=== PATIENT | female | born 1990 | race Caucasian/White ===

== ENCOUNTER 2016-12-21 09:57 | Emergency (ER) | payer OTHER ==
[~2016-12-21] VITALS: Ht 165.1 cm; Wt 57.7 kg
[~2016-12-21 09:57] MED LIST: MOTRIN 800800 MG/TAB PO
[2016-12-21 10:00] VITALS: BP 130/73; PULSE 84; TEMP 98.3
[2016-12-21] MEDS ORDERED: PRENATAL 191 TAB PO (10:05)
== END 2016-12-21 11:38 | disposition home or self-care (01) ==
LOC: COL.ER 09:57
DX: O20.9 Hemorrhage in early pregnancy, unspecified (principal); Z3A.19 19 weeks gestation of pregnancy; O26.892 Other specified pregnancy related conditions, second trimester; Z67.41 Type O blood, Rh negative
CPT/HCPCS: J2791

== ENCOUNTER 2017-05-16 07:32 | Inpatient (IN) | payer OTHER ==
[~2017-05-16] VITALS: Ht 165.1 cm; Wt 67.7 kg
[2017-05-16] VITALS (23 sets, daily range): BP systolic 96–144; BP diastolic 44–77; PULSE 87–150; TEMP 98.4–99.1
[~2017-05-16 07:32] MED LIST changes: +PRENATAL 191 TAB PO
[2017-05-16] MEDS ORDERED: SLOW FE142 MG PO (08:07)
[2017-05-16 09:54] LABS: BASO # 0.1 (0.0-0.2); BASO % 0.4 % (0.0-2.0); EOS # 0.1 (0.0-0.7); EOS % 0.7 % (0-4.0); GRAN # 10.2 (1.4-6.5); GRAN % 73.2 % (42.2-75.2); LYMPH # 2.4 (1.2-3.4); LYMPH % 17.5 % (20.0-51.0); MEAN CELL VOLUME 101 fl (80.0-100.0); MEAN CORPUSCULAR HGB CONC 34 g/dl (33.0-37.0); MEAN PLATELET VOLUME 9.5 fl (7.4-10.4); MONO % 7.3 % (1.7-9.3); PLATELET COUNT 318 K/mm3 (130-400); WHITE BLOOD COUNT 13.9 K/mm3 (4.8-10.8)
[2017-05-16 09:56] LABS: HEMATOCRIT 31.4 % (37.0-47.0); HEMOGLOBIN 10.8 g/dl (12.5-16.0); MEAN CORPUSCULAR HEMOGLOBIN 35 pg (27.0-31.0)
[2017-05-17 01:00] VITALS: BP 101/66; PULSE 94; TEMP 98.2
[2017-05-17 04:10] VITALS: BP 99/52; PULSE 92; TEMP 97.6
[2017-05-17 06:36] VITALS: BP 96/46; PULSE 83; TEMP 98.2
[2017-05-17] MEDS ORDERED: IBU600 MG PO (10:17)
== END 2017-05-17 14:40 | disposition home or self-care (01) | DRG 775 ==
LOC: LDRO 07:32 → LDR 07:40 → OB 16:15
PROVIDERS: Obstetrics & Gynecology
PROC: 10E0XZZ Delivery of Products of Conception, External Approach (ICD-10-PCS; principal; 2017-05-16)
PROC: 0KQM0ZZ Repair Perineum Muscle, Open Approach (ICD-10-PCS; 2017-05-16)
DX: O69.81X0 Labor and delivery complicated by cord around neck, without compression, not applicable or unspecified (principal); O36.0130 Maternal care for anti-D [Rh] antibodies, third trimester, not applicable or unspecified; O70.1 Second degree perineal laceration during delivery; O75.89 Other specified complications of labor and delivery; Z3A.39 39 weeks gestation of pregnancy; Z37.0 Single live birth
CPT/HCPCS: J2210; J2590; J7120

== ENCOUNTER 2018-01-01 18:09 | Emergency (ER) | payer OTHER ==
[~2018-01-01] VITALS: Ht 165.1 cm; Wt 58.1 kg
[~2018-01-01 18:09] MED LIST changes: +IBU600 MG PO; +SLOW FE142 MG PO
[2018-01-01 18:12] VITALS: TEMP 98.1
[2018-01-01] MEDS ORDERED: HEATHER0.35 MG PO (18:32)
[2018-01-01 19:08] LABS: HEMATOCRIT 38.8 % (37.0-47.0); HEMOGLOBIN 13.6 g/dl (12.5-16.0); MEAN CELL VOLUME 94 fl (80.0-100.0); MEAN CORPUSCULAR HEMOGLOBIN 33 pg (27.0-31.0); MEAN CORPUSCULAR HGB CONC 35 g/dl (33.0-37.0); PLATELET COUNT 309 K/mm3 (130-400); RED BLOOD COUNT 4.14 M/mm3 (4.10-5.30); REDCELL DISTRIBUTION WIDTH-CV 11.3 % (11.5-14.5)
[2018-01-01 19:21] LABS: COLLECTION METHOD CLEAN CATCH
[2018-01-01 19:23] LABS: ALBUMIN 4.6 gm/dL (3.5-5.0); BILIRUBIN,TOTAL 0.4 mg/dL (0.0-1.0); CALCIUM 9.5 mg/dL (8.4-10.2); CREATININE, serum 0.7 mg/dL (0.52-1.25); TOTAL PROTEIN 7.4 gm/dL (6.4-8.2)
[2018-01-01 19:29] LABS: PH 6 (5-8); URINE APPEARANCE Clear; URINE BACTERIA None Seen /hpf; URINE BILIRUBIN Negative (NEGATIVE); URINE BLOOD Negative (NEGATIVE); URINE COLOR Yellow; URINE GLUCOSE Negative (NEGATIVE); URINE KETONE Negative (NEGATIVE); URINE LEUKOCYTE ESTERASE Negative (NEGATIVE); URINE NITRATE Negative (NEGATIVE); URINE PROTEIN(semi-quant) Negative (NEGATIVE); URINE RBC 0-2 /hpf; URINE UROBILINOGEN Negative (NEGATIVE)
[2018-01-01 19:53] LABS: THYROID STIMULATING HORMONE 1.9 uIU/mL (0.465-4.680)
[2018-01-01 20:34] VITALS: BP 138/72; PULSE 57
== END 2018-01-01 20:34 | disposition home or self-care (01) ==
LOC: COL.ER 18:09
PROVIDERS: Physician Assistant
DX: M94.0 Chondrocostal junction syndrome [Tietze] (principal)

== ENCOUNTER → 2018-01-12 | Outpatient (CLI) | payer OTHER ==
[~2018-01-12] MED LIST changes: +HEATHER0.35 MG PO
== END ==
LOC: COL.CARD 07:45
DX: R00.2 Palpitations (principal); R07.9 Chest pain, unspecified

== ENCOUNTER 2018-06-12 08:33 | Day surgery (SDC) | payer OTHER ==
[~2018-06-12] VITALS: Ht 165.1 cm; Wt 54.5 kg
[2018-06-12 09:06] LABS: BASO # 0.1 (0.0-0.2); BASO % 0.8 % (0.0-2.0); EOS # 0.2 (0.0-0.7); EOS % 2.5 % (0-4.0); GRAN # 3.9 (1.4-6.5); GRAN % 46.3 % (42.2-75.2); HEMOGLOBIN 11.6 g/dl (12.5-16.0); LYMPH # 3.7 (1.2-3.4); LYMPH % 43.9 % (20.0-51.0); MEAN CELL VOLUME 96 fl (80.0-100.0); MEAN CORPUSCULAR HEMOGLOBIN 33 pg (27.0-31.0); MEAN CORPUSCULAR HGB CONC 35 g/dl (33.0-37.0); MEAN PLATELET VOLUME 9.3 fl (7.4-10.4); MONO # 0.5 (0.1-0.6); MONO % 6.1 % (1.7-9.3); PLATELET COUNT 283 K/mm3 (130-400); RED BLOOD COUNT 3.49 M/mm3 (4.10-5.30); REDCELL DISTRIBUTION WIDTH-CV 12.3 % (11.5-14.5)
[2018-06-12 09:07] LABS: HEMATOCRIT 33.5 % (37.0-47.0)
[2018-06-12 09:22] LABS: ALANINE AMINOTRANSFERASE 13 U/L (9-52); ALBUMIN 4.2 gm/dL (3.5-5.0); ALKALINE PHOSPHATASE 58 U/L (50-136); ANION GAP 7 mmol/L (7-16); AST,SGOT 17 U/L (15-37); BILIRUBIN,TOTAL 0.6 mg/dL (0.0-1.0); BLOOD UREA NITROGEN 8 mg/dL (7-17); C-REACTIVE PROTEIN < 0.5 mg/dL (0.0-0.9); CALCIUM 9.1 mg/dL (8.4-10.2); CARBON DIOXIDE 27 mmol/L (22-30); CHLORIDE 105 mmol/L (98-107); CREATININE, serum 0.72 mg/dL (0.52-1.25); GLUCOSE 137 mg/dL (74-106); POTASSIUM 3.7 mmol/L (3.4-5.0); SODIUM 139 mmol/L (137-145); TOTAL PROTEIN 6.9 gm/dL (6.4-8.2)
[2018-06-12 09:36] LABS: HCG,QUANTITATIVE 128 mIU/mL (0-5)
--- NOTE | 2018-06-12 10:30 | NUR ---
Procedure consent gone over/patient understands, and signs paper. 1035: Patient to OR via wheelchair from ED. Patient onn the table and Alvaro DANIELS assists with care. See anesthesia record.
--- NOTE | 2018-06-12 11:20 | NUR ---
Patient onto new bed and to room 221 via bed. 1125: Patient resting and VSS/ bleeding WNL at this time. Patient oriented to room and will continue to monitor.
[2018-06-12 11:25] VITALS: BP 89/39; PULSE 82
[2018-06-12] MEDS ORDERED: MOTRIN 800800 MG/TAB PO (11:29)
[2018-06-12 11:30] VITALS: BP 76/56; PULSE 80
[2018-06-12] MEDS ORDERED: PERCOCET 325 MG1 TA2 PO (11:30)
[2018-06-12] MEDS ORDERED: METHERGINE0.2 MG/TAB PO (11:30)
[2018-06-12 11:45] VITALS: BP 94/58; PULSE 76
[2018-06-12 12:00] VITALS: BP 95/45; PULSE 54
[2018-06-12 12:30] VITALS: BP 108/44; PULSE 82
--- NOTE | 2018-06-12 12:30 | NUR ---
Pt assisted to bathroom, voids 500cc clear urine. Bleeding is WNL. New pad placed and pt back to bed. Denies feeling dizzy or nauseated.
[2018-06-12 13:00] VITALS: BP 111/63; PULSE 88; TEMP 98
--- NOTE | 2018-06-12 14:45 | NUR ---
discharge instructions given to pt, verbalizes understanding. No further questions noted. INT removed. Peripad with scant amount of bleeding. Pt denies any pain.
== END 2018-06-12 15:00 | disposition home or self-care (01) ==
LOC: COL.ER 08:33 → SDCO 10:28
PROVIDERS: Nurse Practitioner
DX: O03.4 Incomplete spontaneous abortion without complication (principal); Z80.1 Family history of malignant neoplasm of trachea, bronchus and lung; Z82.62 Family history of osteoporosis; Z82.49 Family history of ischemic heart disease and other diseases of the circulatory system
CPT/HCPCS: J2210; J2250; J2704; J3010; J7030; J7120

== ENCOUNTER → 2018-11-16 | Outpatient (CLI) | payer OTHER ==
[~2018-11-16] MED LIST changes: +METHERGINE0.2 MG/TAB PO; +PERCOCET 325 MG1 TA2 PO
== END ==
LOC: COL.RAD 07:30
DX: R42 Dizziness and giddiness (principal)
CPT/HCPCS: A9585